=== PATIENT | male | born 1985 | race Hispanic/Latino ===

== ENCOUNTER 2017-01-02 20:01 | Emergency (ER) | payer SELFPAY ==
[~2017-01-02 20:01] MED LIST: TRIMOX500 MG PO
[2017-01-02] MEDS ORDERED: FLEXERIL PO (21:27)
[2017-01-02] MEDS ORDERED: LORTAB 10-325 M1 TAB PO (21:27)
[2017-01-02 21:41] VITALS: BP 142/90
== END 2017-01-02 21:41 | disposition home or self-care (01) | DRG 563 ==
LOC: ED 20:01
DX: S39.012A Strain of muscle, fascia and tendon of lower back, initial encounter (principal); M51.9 Unspecified thoracic, thoracolumbar and lumbosacral intervertebral disc disorder; X50.9XXA Other and unspecified overexertion or strenuous movements or postures, initial encounter; Y93.89 Activity, other specified; Y92.009 Unspecified place in unspecified non-institutional (private) residence as the place of occurrence of the external cause